=== PATIENT | female | born 1975 | race Caucasian/White ===

== ENCOUNTER 2017-11-28 06:40 | Day surgery (SDC) | payer OTHER ==
[2015-05-02 09:55] VITALS: BMI 24.2
[2017-11-28] MEDS ORDERED: Lactated Ringer's 500 ML IV ONE ×2 (09:08→09:50)
[2017-11-28] MEDS ORDERED: Propofol 10 mg/ml Inj (20 ML) ONE ×3 (09:13→09:44)
[2017-11-28] MEDS ORDERED: Midazolam 2 MG/2 ML VIAL ONE (09:13)
[2017-11-28 11:56] VITALS: TEMP 97.3
[2017-11-28 11:59] VITALS: RESP 18; O2SAT 100
[2017-11-28 13:59] VITALS: BP 138/70; PULSE 68
== END 2017-11-28 14:30 | disposition home or self-care (01) ==
LOC: C.ENDO 06:40
PROVIDERS: ATTEND Internal Medicine Gastroenterology
DX: K62.5 Hemorrhage of anus and rectum (principal); B96.81 Helicobacter pylori [H. pylori] as the cause of diseases classified elsewhere; K56.699 Other intestinal obstruction unspecified as to partial versus complete obstruction; K29.70 Gastritis, unspecified, without bleeding
CPT/HCPCS: 43239; 45380; 84703; 88305; J2001; J2250; J2704; J7120